=== PATIENT | male | born 1980 | race Caucasian/White ===

== ENCOUNTER 2018-04-01 21:44 | Emergency (ER) | payer OTHER, SELFPAY ==
[2018-04-01 22:58] LABS: HEMATOCRIT 42.4 % (42.0-52.0); HEMOGLOBIN 14.7 g/dl (13.5-17.5); MEAN CORPUSCULAR HEMOGLOBIN 32.7 pg (27.0-33.0); MEAN CORPUSCULAR HGB CONC 34.7 g/dl (32.0-36.5); MEAN CORPUSCULAR VOLUME 94.4 fl (80.0-96.0); PLATELET COUNT, AUTOMATED 300 10^3/uL (150-450); RED BLOOD COUNT 4.49 10^6/uL (4.30-6.10); RED CELL DISTRIBUTION WIDTH 12.1 % (11.5-14.5); WHITE BLOOD COUNT 6.8 10^3/uL (4.0-10.0)
[2018-04-01 23:20] LABS: AMPHETAMINES LEVEL URINE NEGATIVE (NEGATIVE); BARBITURATES URINE NEGATIVE (NEGATIVE); BENZODIAZEPINES URINE NEGATIVE (NEGATIVE); CANNABINOIDS URINE NEGATIVE (NEGATIVE); COCAINE METABOLITE URINE NEGATIVE (NEGATIVE); METHADONE URINE NEGATIVE (NEGATIVE); OPIATES URINE NEGATIVE (NEGATIVE); PHENCYCLIDINE URINE NEGATIVE (NEGATIVE)
[2018-04-01 23:31] LABS: ACETAMINOPHEN LEVEL < 2.0 UG/ML (10.0-30.0); ALBUMIN/GLOBULIN RATIO 1.08 (1.00-1.93); ALKALINE PHOSPHATASE 74 U/L (45-117); ALT/SGPT 99 U/L (12-78); ANION GAP 10 MEQ/L (8-16); AST/SGOT 57 U/L (7-37); BILIRUBIN,DIRECT 0.2 MG/DL (0.0-0.2); BILIRUBIN,TOTAL 0.6 MG/DL (0.2-1.0); BLOOD UREA NITROGEN 3 MG/DL (7-18); CALCIUM LEVEL 8.5 MG/DL (8.5-10.1); CARBON DIOXIDE LEVEL 24 MEQ/L (21-32); CHLORIDE LEVEL 110 MEQ/L (98-107); CREATININE FOR GFR 0.79 MG/DL (0.70-1.30); ETHYL ALCOHOL (ETHANOL) 0.332 % (0.000-0.010); GLOMERULAR FILTRATION RATE > 60.0 (>60); GLUCOSE, FASTING 117 MG/DL (70-100); POTASSIUM SERUM 3.5 MEQ/L (3.5-5.1); SALICYLATE LEVEL < 1.7 MG/DL (5.0-30.0); SODIUM LEVEL 144 MEQ/L (136-145); TOTAL PROTEIN 7.7 GM/DL (6.4-8.2)
[2018-04-02] MEDS ORDERED: LORazepam 2 MG TAB PO (08:30)
[2018-04-02] MEDS: FOLIC ACID 1 MG TAB PO (08:59)
[2018-04-02] MEDS: MULTIVITAMINS/MINERALS THERAP 1 TAB PO (08:59)
[2018-04-02] MEDS: THIAMINE 100 MG TAB PO (08:59)
== END 2018-04-02 15:01 | disposition home or self-care (01) ==
LOC: M ED 04-02 15:01
DX: F10.129 Alcohol abuse with intoxication, unspecified (principal)
CPT/HCPCS: 80320